=== PATIENT | female | born 1955 | race Caucasian/White ===

== ENCOUNTER 2020-01-28 07:24 | Outpatient (CLI) | payer OTHER ==
--- NOTE | 2020-01-28 09:07 | CT ---
EXAM: CT Pulmonary Lung Scan PROVIDED CLINICAL HISTORY: Tobacco abuse. Smoking history for 40+ years. Screening evaluation. COMPARISON: CT thorax on 01/08/2016 FINDINGS: Again noted is biapical pleural and parenchymal scarring. Slightly irregular nodular density is seen along the minor fissure which was also seen on the prior study in 2016 and may represent either a normal focal area of scarring versus small intrapleural lymph node. No discrete pulmonary nodule or m ass is seen bilaterally. There is no pleural effusion. Mild emphysematous changes are seen in the lungs bilaterally. There is a tiny nodular density seen in the posterior aspect of the most proximal right mainstem bron chus which could be related to secretions. Follow-up evaluation versus bronchoscopy is suggested for further evaluation. Vascular calcifications are seen in the thoracic aorta and to lesser extent involving the coronary ar teries. Lack of intravenous contrast limits evaluation of mediastinal structures, but no enlarged lymph nodes are appreciated on this exam. Bilateral breast prostheses are present. A 1.5 cm hypodense lesion is seen in the inferior pole left kidney which is incompletely imaged or ev aluated on this exam. Follow-up renal sonogram is suggested. IMPRESSION: 1. Lung RADS category 2-stable benign pleural-based nodule right middle lobe. Continued follow-up leslie ual screening is recommended with low-dose CT scan in 12 months. 2. Lung RADS category S-small nodular subcentimeter density posterior aspect right mainstem bronchus which could be attributable to secretions. Follow-up CT scan thorax in 3 months versus bronchoscopy is suggested for further evaluation. 3. Lung RADS category S-incompletely imaged inferior pole left renal hypodense lesion. Renal sonogram is recommended for further evaluation.
== END 2020-01-28 07:25 | disposition home or self-care (01) ==
LOC: CT 07:24
PROVIDERS: ATTEND Family Medicine
DX: Z12.2 Encounter for screening for malignant neoplasm of respiratory organs (principal); F17.210 Nicotine dependence, cigarettes, uncomplicated; R91.1 Solitary pulmonary nodule; J98.4 Other disorders of lung; N28.9 Disorder of kidney and ureter, unspecified
CPT/HCPCS: G0297

== ENCOUNTER 2020-02-06 10:42 | Outpatient (CLI) | payer BC ==
--- NOTE | 2020-02-06 14:50 | ULT ---
BILATERAL RENAL ULTRASOUND COMPLETE: HISTORY: Followup kidney lesion. COMPARISON: 01/28/2020 CT. FINDINGS: The right kidney measures 9.9 x 5.3 x 4.8 cm. The left kidney measures 10.7 x 5.4 x 5.3 cm. No renal hydronephrosis. There is a 1.8 x 1.9 cm diameter cyst in the lower pole region of the left kidney. No renal hydronephrosis. The urinary bladder appears unremarkable. No perinephric process. IMPRESSION: Left lower pole renal cyst. No renal hydronephrosis or other acute process. POS: [facility]
== END 2020-02-06 10:43 | disposition home or self-care (01) ==
LOC: BICULT 10:42
PROVIDERS: ATTEND Family Medicine
DX: N28.9 Disorder of kidney and ureter, unspecified (principal); N28.1 Cyst of kidney, acquired
CPT/HCPCS: 76770

== ENCOUNTER 2020-07-28 11:02 | Outpatient (CLI) | payer BC ==
--- NOTE | 2020-07-28 11:31 | MMO ---
Bilateral MAMMO Bilat Screen [facility]. CLINICAL HISTORY: Patient is 65 years old and is seen for screening. The patient has no family history of breast cancer. The patient has no personal history of cancer. The patient has a history of Implants. VIEWS: The views performed were: bilateral craniocaudal; bilateral craniocaudal with tomosynthesis; bilateral mediolateral oblique; bilateral mediolateral oblique with tomosynthesis; and bilateral Implant displaced with tomosynthesis. FILMS COMPARED: The present examination has been compared to prior imaging studies performed at [facility] on 07/03/2006, and at [facility] on 06/09/2005. This study has been interpreted with the assistance of computer-aided detection. MAMMOGRAM FINDINGS: The breasts are heterogeneously dense, which could obscure a lesion on mammography. There are no suspicious masses, suspicious calcifications, or new areas of architectural distortion. IMPRESSION: THERE IS NO MAMMOGRAPHIC EVIDENCE OF MALIGNANCY. A ROUTINE FOLLOW-UP MAMMOGRAM IN 1 YEAR IS RECOMMENDED. THE RESULTS OF THIS EXAM WERE SENT TO THE PATIENT. ACR BI-RADS Category 1 - Negative MAMMOGRAPHY NOTE: 1. A negative mammogram report should not delay a biopsy if a dominant of clinically suspicious mass is present. 2. Approximately 10% to 15% of breast cancers are not detected by mammography. 3. Adenosis and dense breasts may obscure an underlying neoplasm. Reported by: MANSI ANDRES MD Electonically Signed: [id number]
== END 2020-07-28 11:03 | disposition home or self-care (01) ==
LOC: BICMAMMO 11:02
PROVIDERS: ATTEND Physician Assistant
DX: Z12.31 Encounter for screening mammogram for malignant neoplasm of breast (principal); Z98.82 Breast implant status
CPT/HCPCS: 77063; 77067

== ENCOUNTER 2021-02-28 10:28 | Outpatient (CLI) | payer MEDICARE, OTHER ==
[~2021-02-28 10:28] MED LIST: Iopamidol 370 76% 100 ML VIAL ONE
[2021-02-28 11:10] LABS: Estimated GFR-MDRD - POC Greater than 90
== END 2021-02-28 10:29 | disposition home or self-care (01) ==
LOC: CT 10:28
PROVIDERS: ATTEND Internal Medicine Pulmonary Disease
DX: R91.1 Solitary pulmonary nodule (principal)
CPT/HCPCS: 71260; 82565; Q9967